=== PATIENT | female | born 1990 | race Two or more races ===

== ENCOUNTER 2016-10-24 09:18 | Inpatient (IN) | payer OTHER ==
[2016-10-24 09:41] VITALS: BMI 32.4
[2016-10-24] MEDS ORDERED: OXYTOCIN 10 UNITS/ML VIAL ONE (10:04)
[2016-10-24] MEDS ORDERED: OXYTOCIN IN NS 500 ML IV ONE (10:04)
[2016-10-24] MEDS ORDERED: PUMP TUBING ONE (10:04)
[2016-10-24] MEDS ORDERED: LIDOCAINE 1% (PRES FREE) 30 ML VIAL ONE (10:04)
[2016-10-24] MEDS ORDERED: SODIUM CHLORIDE 0.9% FLUSH 10 ML ONE ×2 (10:04)
[2016-10-24] MEDS ORDERED: MINERAL OIL 25 ML BOT ONE (10:04)
[2016-10-24] MEDS ORDERED: IV START KIT ONE (10:04)
[2016-10-24] MEDS ORDERED: LIDOCAINE Viscous 2% 15 ML UDCUP ONE (10:04)
[2016-10-24] MEDS ORDERED: LACTATED RINGERS 1,000 ML ONE (10:06)
[2016-10-24] MEDS ORDERED: OXYTOCIN IN NS 334 ML IV PRN (10:09)
[2016-10-24] MEDS: LACTATED RINGERS 1,000 ML IV SCH ×2 (10:37→20:29)
[2016-10-24 11:00] LABS: HEMATOCRIT 34.1 % (37.0-47.0); HEMOGLOBIN 11.5 gm/l (12.0-16.0); MEAN CELL VOLUME 87.2 fl (81.0-99.0); MEAN CORPUSCULAR HEMOGLOBIN 29.4 pg (27.0-31.0); MEAN CORPUSCULAR HGB CONC 33.7 g/dl (33.0-37.0); RED CELL DISTRIBUTION WIDTH 13.5 % (11.5-14.5)
--- NOTE | 2016-10-24 15:13 | PCMAN ---
OB Admission Note - History : 1 Term: 0 : 0 Abortions (S&E): 0 Livin EDC:: 10/15/16 Gestational Age (weeks): 41 Days (#/7): 2 Admit Cervical Dilation:: 5 Admit Cervical Effacement (%):: 100 Admit Station:: -1 Admit Presentaton:: vertex Membrane Status: Intact Labor Onset (Date): 10/24/16 Labor Onset (Time): 03:00 Contractions: Yes Contraction Frequency:: every 2-3 mins Heart Rate:: 150 Status:: Cat 2 Summary of Course:: Suzi Tong) is a at 41 weeks and 2 days by her LMP and a first trimester UN. She came in this morning c/o regular uterine contractions that were every 2-5 mins since 03:00am. She reports that they have become more painful throughout the morning. No LOF noted but she does have bloody show. Kami has not eaten since 4pm yesterday, since food has a "funny" taste. She is accompanied by her Nikko. Kami's care was started at 8 weeks and 4 days of . Her LMP was consistent with a first trimester UN. She has had regular care with 15 OB visits. BMI of 29 with a total of 20lb weight gain. 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 She was treated for this and has been asymtptomatic throughout her . She is rubella non-immune and GBS neg. - Labs Blood Type: O (+) positive Rubella Status: Non-immune GBS Status: Negative Abnormal Labs: Rubella Non-Immune/Equivocal - Review of Systems Respiratory - Lungs clear, neg for cough - Physical Exam Psych/Mental Status: Mood/Affect Appropriate Neurological: Grossly Intact, Alert Lungs: Clear to Auscultation Bilaterally, Other (no recent cough) Cardiovascular: Regular Rate and Rhythm Genitourinary: Normal Female Genitalia Rectal Exam: Deferred Extremities: Full ROM Skin: Normal Color, Warm, Dry, Intact - Problems (1) Active labor Status: Acute Code: [id number]/Plan: O/ FHR 150, accels, variables noted with contractions, moderate variability Ctxs every 2-3 minutes, lasting 60 secs, moderate to palpation SVE 5/100/-1 Intact Vertex Bloody show GBS neg Afebrile A/ Term Active labor Cat 2 FHR P/ Admit for labor Support patient through labor process Epidural per pt request Labs - CBC and RPR Consider IV, currently taking PO fluids Anticipate vaginal
--- NOTE | 2016-10-24 16:29 | PDOC36 ---
Provider Note Subject: Progress Note Note: Gerard Mcclure is coping well through her contractions. Since admission she has walked around her room, bounced on the ball, and used the tub to relax in. Encouraged to stay mobile while she can. Anticipate longer contractions as active labor progresses. Her is supportive. Questions answered and anticipatory guidance provided as labor progresses. She remains on continuous EFM for the variables with the contractions. O/ FHR 150, accels, variables with contractions that dip to 120, moderate variability Contractions every 2-4 mins, lasting 60 secs Intact SVE at 14:00hrs 6-7/100/-1 Bloody show A/ at 41 weeks and 2 days Active labor Cat 2 FHR P/ Clear liquid diet Position changes Utilize the tub as needed Continue to anticipate vaginal
--- NOTE | 2016-10-24 20:47 | PDOC36 ---
Provider Note Subject: progress note - hand off note Note: Hand off received by off going CNM S: Kami continues to cope well through her contractions, which she states are getting stronger. She has been in and out of the tub for effective hydrotherapy. O: FHR 165, accels, variables with contractions that dip to 120, moderate variability Contractions every 4 mins, lasting 60 secs SVE at 1930 7.5/100/-2, BBOW Leopolds, LOT, possible deflexed A: at 41w2d Membranes Intact, GBS neg, Afebrile Active labor Cat 2 FHR Minimal labor progress secondary to possible malposition P: Spinning babies, three sisters positions reviewed and done with patient (H&K rebozo shifting, side lying release L & R, forward leaning inversion). Patient tolerated position changes well. Encouraged side lunge, hip dancing, exaggerated berkowitz, nipple stimulation, and shower hydrotherapy as needed. IV hydration - LR fluid bolus Anticipate vaginal
[2016-10-24] MEDS ORDERED: FENTANYL 100 MCG/2 ML VIAL IV ONE (21:33)
[2016-10-25] MEDS: LACTATED RINGERS 1,000 ML IV SCH ×2 (01:52→04:27)
[2016-10-25] MEDS ORDERED: LIDOCAINE 1% (PRES FREE) 30 ML VIAL SUB-Q ONE (02:44)
[2016-10-25] MEDS ORDERED: FENTANYL 100 MCG/2 ML VIAL ONE (02:44)
[2016-10-25] MEDS ORDERED: FENTANYL 100 MCG/2 ML VIAL IV ONE (02:48)
[2016-10-25] MEDS ORDERED: MINERAL OIL 25 ML BOT PO ONE (02:56)
[2016-10-25] MEDS ORDERED: LANOLIN 50 APPLIC/7G TUBE TP PRN ×2 (04:38→08:50)
[2016-10-25] MEDS ORDERED: BENZOCAINE/MENTHOL 60 APPLIC/BOT TP PRN ×2 (04:38→08:50)
[2016-10-25] MEDS ORDERED: OXYTOCIN IN NS 167 ML IV PRN ×2 (04:38→08:50)
[2016-10-25] MEDS ORDERED: HYDROCODONE/ACETAMINOPHEN 5/325MG TABLET PO PRN ×2 (04:39→08:50)
[2016-10-25] MEDS ORDERED: CALCIUM CARBONATE 500 MG TAB.CHEW PO PRN ×2 (04:39→08:50)
[2016-10-25] MEDS ORDERED: MAGNESIUM HYDROXIDE 30 ML UDCUP PO PRN ×2 (04:39→08:50)
[2016-10-25] MEDS ORDERED: LACTATED RINGERS 1,000 ML ONE (04:44)
[2016-10-25] MEDS ORDERED: IBUPROFEN 800 MG TABLET PO SCH ×2 (04:45→09:00)
--- NOTE | 2016-10-25 07:51 | PCMDEL ---
Delivery Note - Labor 1st stage (hr/min):: 21h50m 2nd stage (hr/min):: 1h44m 3rd stage (hr/min):: 0h14m Total (hr/min):: 24h48m Pushed (hr/min):: 2h0m - Delivery Delivery (Date): 10/25/16 Delivery (Time): 02:34 Gender: Male Weight: 8 lb 4 oz Length: 1 ft 9 in Presentation: Cephalic Position: OA Umbilical Cord: 3 Vessel Delayed Cord Clamping:: > 3 min 1 Minute Total: 9 5 Minute Total: 9 Placenta:: spontaneous, intact, 3vc EBL:: 1600 Perineum:: 2nd perineal laceration that had 3 lacerated blood vessels that bled briskly and a small 1st degree right labial laceration distal/inferior to clitoris Suture:: 3-[address], 4-0 vicryl on SH x 2, one 3-[address] opened but not required. Anesthesia/Meds:: IV fentanyl in labor and immediate Length ROM:: 2h34m Comments:: Following spontaneous onset of contractions at 0330on 10/24/16, Kami made steady progress to 6-7cm, she then stalled with malpostition at LOT, deflexed. After multiple position changes and IV fentanyl x 1, her baby rotated to BHANU and she SROM'd for light mec at 2300 on 10/25. She had continuous monitoring throughout labor due to Cat. II with intermittent variable decelerations and periodic tachycardia shortly prior to complete. Mom remained afrebile and did not meet criteria for chorioamnionitis. She pushed effectively for 1h44m in various positions including hands and knees and side lying and was able to achieve of vigorous male . OA to BHANU. No difficulty with delivery of shoulders. Apgars 9/9, placed immediately on mom's chest for bonding and drying. Notable maternal blood loss at time of delivery, suspect for laceration or possible abruption. AMTSL initiated d/t initial blood loss. Following 3 min delayed cord clamping while CNM inspected perineum, cord cut by CNM. Laceration was inspected and hemostats applied to arterial vessel lacerations x 2. IV fentanyl administered given for quick pain relief and anticipated vigorous evaluation and treatment of bleeding. Local lidocaine also used as needed throughout repair.Largest vessel (left) was sutured close with figure eight stitch. Spontaneous delivery of intact placenta, 3vc. Fundus firm midline at u. 2nd degree perineal lac noted to have another briskly bleeding vessel (left), which was approximated with figure eight stitch. 2nd deg lac was still bleeding and was half repaired. With bleeding then manage full inspection of labia/ vagina was done and mild brisk bleed from clitoral area was noted. Vagina packed with 4x4 x [address] Maxwell was requested for evaluation of clitoral/ urethral involvement. Dr. Maxwell noted only a small 1st degree lac right distal & inferior to clitoris and was repaired by CNM with Dr. Maxwell's assistance. 2nd deg perineal lac repair was completed to approximation. Throughout repair tissue was friable but hemostatsis was achieved by completion of repair. Final EBL 1600ml. Reviewed blood loss with patient who denied heart palpitations, ear ringing, dizziness. Maternal tachycardia noted and remaining 400ml of LR bolus given. Will continue to monitor for s/s of severe anemia, H/H ordered for today and 24hrs PP, and PO ferrous sulfate ordered BID. Instruments/laps/sharps counts were correct. Mom and baby stable, and baby to breast.
--- NOTE | 2016-10-25 08:01 | PDOC36 ---
Provider Note Subject: labor progress note - SROM Note: SROM noted at 2300 for light mec. Kami is primarily sleeping through contractions but notes contractions are now returning to pre-fentanyl frequency of q 3-4min. FHT continues cat. II for occasional early and variable decelerations, otherwise moderate variability. tachycardia resolved with LR fluid bolus. Will continue with position changes to encourage flexion and rotation of fetus.
--- NOTE | 2016-10-25 08:07 | PDOC36 ---
Provider Note Subject: labor progress note - fentanyl Note: S: Kami has done multiple of position changes to assist with rotation ( Side- lunge, walking, H&K rebozo shifing, side lying release R & L, and FLI x 3) . She is feeling contractions stronger and states she is exhausted. Requesting IV pain medication. O: FHR 165, accels, variables with contractions that dip to 120, moderate variability Contractions every 4 mins, lasting 60 secs SVE at 2130 7.5/100/-2, BBOW, deflexed, LOT A: at 41w2d Membranes Intact, GBS neg, Afebrile Active labor Cat 2 FHR Stalled labor progress secondary to malposition P: IV Fentanyl 100 mcg ordered. Exaggerated Anderson position while she sleeps. Encouraged rest at this time. While re-initiate with maternal position changes when she is awake. If not change, will consider epidural and augmentation with pitocin or AROM. Anticipate vaginal
[2016-10-25] MEDS ORDERED: DOCUSATE SODIUM 100 MG CAPSULE PO PRN (08:50)
[2016-10-25] MEDS ORDERED: LACTATED RINGERS 1,000 ML IV PRN (08:50)
[2016-10-25] MEDS ORDERED: DOCUSATE SODIUM 100 MG CAPSULE PO SCH (09:00)
[2016-10-25] MEDS ORDERED: FERROUS SULFATE (65 Fe) 325 MG TABLET PO SCH (09:00)
[2016-10-25] MEDS: FERROUS SULFATE (65 Fe) 325 MG TABLET PO SCH ×2 (09:18→20:49)
[2016-10-25 09:32] LABS: HEMATOCRIT 25.5 % (37.0-47.0); HEMOGLOBIN 8.9 gm/l (12.0-16.0)
[2016-10-25] MEDS: IBUPROFEN 800 MG TABLET PO PRN (18:01)
[2016-10-26] MEDS: IBUPROFEN 800 MG TABLET PO PRN (08:30)
--- NOTE | 2016-10-26 09:15 | PDOC44 ---
- Subjective Day: 1 Kami reports feeling fatigued and very sore in her bottom. She also reports some dizziness while ambulating. Denies heart palpitations, shortness of breath , fainting, and headache. She reports that is going well, although she is working to wake baby up often enough to feed. Baby is latching deeply. She would like to go home later today if possible. Reports Flatus, Reports Pain Tolerable, Reports , Reports Lochia Moderate, Reports Tolerating Regular Diet - Objective Temp Pulse Resp BP Pulse Ox 98.8 F 114 12 108/58 10/26/16 08:16 10/26/16 08:16 10/26/16 08:16 10/26/16 08:16 Lab Results 10/25/16 09:15 Hgb 8.9 L D Hct 25.5 L Current Medications Generic Name Dose Route Start Last Admin Trade Name Freq PRN Reason Stop Dose Admin Acetaminophen/Hydrocodone Bitart 1 - 2 tab 10/25/16 08:50 Delaplaine 5/325 PO Q4H PRN Pain (Moderate) Benzocaine/Menthol 1 applic 10/25/16 08:50 10/25/16 20:50 Dermoplast TP 1 bot PRN PRN Administration Patient Comfort Calcium Carbonate/Glycine 500 - 1,000 mg 10/25/16 08:50 Tums PO BID PRN Indigestion Docusate Sodium 100 mg 10/25/16 08:50 Colace PO DAILY PRN Comfort Emollient Ointment 1 applic 10/25/16 08:50 Nrk-Q-Fbamry TP PRN PRN sore nipples Ferrous Sulfate 325 mg 10/25/16 09:00 10/25/16 20:49 Ferrous Sulfate PO 325 mg BID VIC Administration Lactated Ringer's 1,000 mls @ 100 mls/hr 10/25/16 08:50 Lactated Ringers IV .Q10H PRN Titrate per clinical situation OXYTOCIN IN NS 167 mls @ 167 mls/hr 10/25/16 08:50 Oxytocin-Ns 30 Unit/500 Ml IV X1 PRN Bleeding/3rd stage labor Ibuprofen 800 mg 10/25/16 08:50 10/26/16 08:30 Motrin PO 800 mg Q6H PRN Administration Pain (Mild) Magnesium Hydroxide 30 ml 10/25/16 08:50 Milk Of Magnesia PO BEDTIME PRN Constipation Sodium Chloride 10 ml 10/25/16 08:50 10/25/16 20:58 Normal Saline 10ml Flush IV 10 ml PRN PRN Administration IV Flush Sodium Chloride 10 ml 10/25/16 09:00 10/26/16 03:25 Normal Saline 10ml Flush IV Not Given Q8HR VIC - Physical Exam General: Afebrile Lungs: Clear to Auscultation Bilaterally Cardiovascular: Regular Rate and Rhythm Breast: Soft, Skin intact, Nipples Intact Fundus: Firm, At Umbilicus (deviated to left-pt hasn't emptied her bladder in several hours) Lochia: Moderate - Problems:Assessment/Plan (1) care and examination of lactating mother Status: AcuteAssessment/Plan: A: Day 1 well Lochia stable Anemia secondary to hemorrhage (see separate note) P: Discussed suggestions, how to keep baby awake/alert Reviewed experience-pt happy with how it went Will inform oncoming CNM of plan to discharge later today depending on pt's anemia status (2) Anemia, Status: AcuteAssessment/Plan: A: hemorrhage Anemia-symptomatic (dizziness, fatigue, tachycardia) P: Recheck H/H this AM Depending on results, recommend blood transfusion/iron infusion/PO iron. Reviewed impacts of anemia on recovery and Encouraged rest and hydration. Discharge later today or tomorrow depending on pt status. Disposition: Anticipate DC to Home (Later today or tomorrow depending on pt's anemia status)
[2016-10-26 13:02] LABS: HEMOGLOBIN 8.3 gm/l (12.0-16.0)
[2016-10-26] MEDS: FERROUS SULFATE (65 Fe) 325 MG TABLET PO SCH (13:34)
[2016-10-26 13:46] VITALS: BP 111/59
--- NOTE | 2016-10-26 14:06 | PDOC39B ---
Hospital Course: ADMIT DATE: 10/24/16 DISCHARGE DATE:10/26/2016 ADMISSION DIAGNOSES: active labor at term PROCEDURES: vaginal laceration repair x2 hours, requiring suture of 2nd degreee tears and actively beeding vessels HISTORY OF PRESENT ILLNESS: 25 year old G1 T0 L0 at 41 weeks 3 days presenting with spontaneous onset of labor. Labor progressed well. She received fentanyl during transition and had of vigorous male at 0234 on . Delivery complicated by vaginal laceration repair x2 hours, requiring suture of 2nd degreee tears and actively beeding vessels. hemorrhage from actively bleeding vessels, QBL 1600mL. HOSPITAL COURSE: The patient has stable anemia resulting from the lacerations. H/H stable at 8.9/25.5 at 9 hours and 8.3/25.0 at 31 hours . She denies, dizziness, tinnitus, heart palpitations, and fatigue. She is with a good latch but is feeding infrequently, q 4-6 hours rather than q 2-3 hours. By day of discharge the patient is ambulating, eating, voiding, and passing flatus without difficulty. Pain is controlled and lochia is appropriate. Laboratory Tests 10/24/16 10/25/16 10/26/16 10:37 09:15 09:50 WBC 17.8 H RBC 3.91 L Hgb 11.5 L 8.9 L D 8.3 L Hct 34.1 L 25.5 L 25.0 L MCV 87.2 MCH 29.4 MCHC 33.7 RDW 13.5 Plt Count 168 Syphilis IgG/IgM Ab Non-reactive Vital Signs - 8 hr 10/26/16 10/26/16 08:16 13:41 Temperature 98.8 F 98.0 F Pulse Rate 114 97 Respiratory 12 12 Rate Blood Pressure 108/58 111/59 - Physical Exam Vital Signs: Temp Pulse Resp BP Pulse Ox 98.8 F 114 12 108/58 10/26/16 08:16 10/26/16 08:16 10/26/16 08:16 10/26/16 08:16 General: Afebrile Psych/Mental Status: Mood/Affect Appropriate, Judgment/Insight Intact, Bonding Well Neurological: Grossly Intact, Alert, Oriented x 4 HEENT: Atraumatic Lungs: Clear to Auscultation Bilaterally, Normal Air Movement Cardiovascular: Regular Rate and Rhythm, Normal S1, Normal S2 Breast: Soft, Skin intact, Nipples Intact Fundus: Firm, Midline, Below Umbilicus Genitourinary: Normal Female Genitalia Lochia: Moderate Rectal Exam: Deferred Extremities: Full ROM Skin: Normal Color - Discharge Diagnosis (1) care and examination of lactating mother Status: AcuteAssessment/Plan: A: Day 1 with good latch, but infrequent feeds Lochia stable Asymptomatic Anemia secondary to hemorrhage P: : Will make appointment with [facility] for 2 days from now. Encouraged to feed infant q 2 hours during the day and q3 hours at night. Discussed that this will help bring her milk in and help to thrive. Anemia: Reviewed blood loss and anemia with patient. Offered iron infusions or oral iron therpaloly and Kami chose to take oral iron therapy, rest, eat iron rich foods, and cook on cast iron. Discussed use of iron fish when cooking as well. Reviewed warning signs and when to call. Midwifery 'After the ' handout given to patient. - Discharge Plan Condition: Stable Disposition: Home Instruction Forms: Vaginal Discharge Instructions Prescriptions: FERROUS GLUCONATE (38 Fe) [IRON FERGON 325 MG TABLET (SHF)] 324 mg PO BID #60 tab Ascorbic Acid [VITAMIN C 250 MG TABLET (SHF)] 250 mg PO BID #60 tab Follow-Up: Pavel-Lucia Dempsey CNM [Certified Nurse Senior Manufacturing Engineer] - As scheduled (November 08, 2016 at the [facility], [address] [place] [address]. at 1pm. )
== END 2016-10-26 14:37 | disposition home or self-care (01) | DRG 774 ==
LOC: FBCOUT 09:18 → FBC 09:19 → FBCOUT 10:00
PROVIDERS: ADMIT Advanced Practice Midwife; ATTEND Advanced Practice Midwife
PROC: 10E0XZZ Delivery of Products of Conception, External Approach (ICD-10-PCS; principal; 2016-10-25)
PROC: 0KQM0ZZ Repair Perineum Muscle, Open Approach (ICD-10-PCS; 2016-10-25)
DX: O48.0 Post-term pregnancy (principal); O72.1 Other immediate postpartum hemorrhage; Z3A.41 41 weeks gestation of pregnancy; Z37.0 Single live birth; O70.1 Second degree perineal laceration during delivery; O99.02 Anemia complicating childbirth; D64.9 Anemia, unspecified